=== PATIENT | female | born 1955 | race Caucasian/White ===

== ENCOUNTER 2016-06-13 13:23 | Emergency (ER) | payer OTHER ==
[2016-06-13 13:50] VITALS: BMI 27.4
--- NOTE | 2016-06-13 13:58 | PDOC ---
History of Present Illness - General History Source: Patient Exam Limitations: No Limitations - History of Present Illness Initial Comments: 06/13/16 14:29 The patient is a 60-year-old female, with a significant past medical history of anxiety and depression, who presents to the ED with shortness of breath and difficulty swallowing today. Pt reports that she is was diagnosed with pneumonia earlier this week and was prescribed a 5-day course of levaquin, last dose is tomorrow. She seen in Dr. Florian Larsen office today with complaints of shortness of breath. EKG was done and appeared normal. While in [facility] the patient began to experience difficulty swallowing along with shortness of breath. Pt was worried and called Dr. Cobb and was advised to visit the ER. The patient denies any fever, chills, nausea, vomiting, diarrhea, or abdominal pain. <Shala Esparza - Last Filed: 06/13/16 14:29> <Debbie Magdaleno - Last Filed: 06/14/16 11:03> - General Chief Complaint: Choking Sensation Stated Complaint: TROUBLE SWOLLING Time Seen by Provider: 06/13/16 13:55 Past History <Shala Esparza - Last Filed: 06/13/16 14:29> - Past Medical History Psychiatric Problems: Yes (DEPRESSION/ANXIETY) - Surgical History Abdominal Surgery: Yes (HERNIA) - Psycho/Social/Smoking Cessation Hx Anxiety: Yes Suicidal Ideation: No Smoking History: Never smoked Hx Alcohol Use: No Drug/Substance Use Hx: No Substance Use Type: None <Debbie Magdaleno - Last Filed: 06/14/16 11:03> - Past Medical History Allergies/Adverse Reactions: Allergies Allergy/AdvReac Type Severity Reaction Status Date / Time oxycodone Allergy Hives Verified 06/13/16 13:51 Home Medications: Ambulatory Orders Diazepam [Valium] 10 mg PO TID PRN 06/13/16 Tranylcypromine Sulfate [Parnate] 40 mg PO DAILY 06/13/16 Review of Systems - Review of Systems Able to Perform ROS?: Yes Comments:: 06/13/16 14:29 GENERAL/CONSTITUTIONAL: No fever or chills. No weakness. HEAD, EYES, EARS, NOSE AND THROAT: No change in vision. No ear pain or discharge. No sore throat. (+)difficulty swallowing. CARDIOVASCULAR: No chest pain. (+)shortness of breath RESPIRATORY: No cough, wheezing, or hemoptysis. GASTROINTESTINAL: No nausea, vomiting, diarrhea or constipation. GENITOURINARY: No dysuria, frequency, or change in urination. MUSCULOSKELETAL: No joint or muscle swelling or pain. No neck or back pain. SKIN: No rash NEUROLOGIC: No headache, vertigo, loss of consciousness, or change in strength/ sensation. ENDOCRINE: No increased thirst. No abnormal weight change. HEMATOLOGIC/LYMPHATIC: No anemia, easy bleeding, or history of blood clots. ALLERGIC/IMMUNOLOGIC: No hives or skin allergy. <Shala Esparza - Last Filed: 06/13/16 14:29> *Physical Exam - Vital Signs Last Vital Signs Temp Pulse Resp BP Pulse Ox 98.3 F 83 20 120/42 98 06/13/16 13:45 06/13/16 13:45 06/13/16 13:45 06/13/16 13:45 06/13/16 13:45 - Physical Exam Comments: 06/13/16 14:31 GENERAL: Awake, alert, and fully oriented, in no acute distress. HEAD: No signs of trauma EYES: PERRLA, EOMI, sclera anicteric, conjunctiva clear. ENT: Auricles normal inspection, hearing grossly normal, nares patent, oropharynx clear without exudates. (+)Dry mucous membranes. NECK: Normal ROM, supple, no lymphadenopathy, JVD, or masses LUNGS: Breath sounds equal, clear to auscultation bilaterally. No wheezes, and no crackles HEART: Regular rate and rhythm, normal S1 and S2, no murmurs, rubs or gallops ABDOMEN: Soft, nontender, normoactive bowel sounds. No guarding, no rebound. No masses EXTREMITIES: Normal range of motion, no edema. No clubbing or cyanosis. No cords, erythema, or tenderness NEUROLOGICAL: Cranial nerves II through XII grossly intact. Normal speech, normal gait SKIN: Warm, Dry, normal turgor, no rashes or lesions noted <Shala Esparza - Last Filed: 06/13/16 14:29> - Vital Signs Last Vital Signs Temp Pulse Resp BP Pulse Ox 98.3 F 83 20 120/42 98 06/13/16 13:45 06/13/16 13:45 06/13/16 13:45 06/13/16 13:45 06/13/16 13:45 <Debbie Magdaleno - Last Filed: 06/14/16 11:03> Medical Decision Making - Medical Decision Making Patient was extremely anxious on initial exam. Only positive physical finding was dry mucous membranes. She improved with IV hydration. XR chest and soft tissue neck both negative. D/w Dr. Cobb, knows patient well, will have her follow up. <Debbie Magdaleno - Last Filed: 06/14/16 11:03> *DC/Admit/Observation/Transfer - Attestations Scribe Attestion: 06/13/16 14:33 Documentation prepared by Shala Esparza, acting as medical office worker for Debbie Magdaleno MD. <Shala Esparza - Last Filed: 06/13/16 14:29> - Discharge Dispostion Admit: No <Debbie Magdaleno - Last Filed: 06/14/16 11:03> Diagnosis at time of Disposition: Mild dehydration - Discharge Dispostion Disposition: HOME Condition at time of disposition: Stable - Referrals Referrals: Florian Cobb MD [Primary Care Provider] - - Patient Instructions Printed Discharge Instructions: DI for Dehydration -- Adult
[2016-06-13] MEDS ORDERED: SODIUM CHLORIDE 1,000 ML IV STA (14:09)
[2016-06-13 16:08] VITALS: BP 112/82; PULSE 69; TEMP 97.9
== END 2016-06-13 16:00 | disposition home or self-care (01) ==
LOC: JER 13:23
PROC: 3E0337Z Introduction of Electrolytic and Water Balance Substance into Peripheral Vein, Percutaneous Approach (ICD-10-PCS; principal; 2016-06-13)
DX: Z87.09 Personal history of other diseases of the respiratory system (principal); J18.9 Pneumonia, unspecified organism
CPT/HCPCS: 70360-TC; 71020-TC; 96360; 99282-25

== ENCOUNTER 2016-06-27 10:20 | Emergency (ER) | payer OTHER ==
[2016-06-27 10:43] VITALS: BMI 21.2
--- NOTE | 2016-06-27 10:52 | PDOC ---
[id number] 4d DIZZINESS, LIGHTHEADED (PCP SENT) Time Seen by Provider: 06/27/16 10:45 - History of Present Illness Initial Comments: 06/27/16 11:50 Patient is a 60-year-old female with past medical history of anxiety, depression , pneumonia. She presents to the ER today from her PCP's office complaining of lightheadedness and dizziness. patient states that she is anxious being in the ER and is having a hard time describing her past medical history. Patient states that she had pneumonia one month ago. At that time she was short of breath and having difficulty breathing. She was treated at that time. follow- up CT of her chest showed no residual pneumonia.Now she feels still short of breath and a pounding in her chest. Patient states that these symptoms do not feel like her anxiety symptoms. patient states that she has also been nauseous since last week and hasn't felt like eating. she is concerned there is something wrong. Denies recent travel or prolonged sitting recent hospitalization. Past History - Past Medical History Allergies/Adverse Reactions: Allergies Allergy/AdvReac Type Severity Reaction Status Date / Time amoxicillin Allergy Verified 06/27/16 10:23 oxycodone Allergy Hives Verified 06/27/16 10:23 Home Medications: Ambulatory Orders Diazepam [Valium] 10 mg PO TID PRN 06/13/16 Tranylcypromine Sulfate [Parnate] 40 mg PO DAILY 06/13/16 Budesonide/Formeterol Fumarate [SYMBICORT 160/4.5mcg -] 1 inh PO DAILY 06/27/16 Psychiatric Problems: Yes (DEPRESSION/ANXIETY) - Surgical History Abdominal Surgery: Yes (HERNIA) - Psycho/Social/Smoking Cessation Hx Anxiety: Yes Suicidal Ideation: No (two years ago. under psychiatry now) Smoking History: Never smoked Have you smoked in the past 12 months: No If you are a former smoker, when did you quit?: 2001 Information on smoking cessation initiated: No Hx Alcohol Use: No Drug/Substance Use Hx: No Substance Use Type: None *Physical Exam - Vital Signs Last Vital Signs Temp Pulse Resp BP Pulse Ox 98.1 F 78 18 144/71 97 06/27/16 10:23 06/27/16 10:23 06/27/16 10:23 06/27/16 10:23 06/27/16 10:23 - Physical Exam Comments: 06/27/16 11:56 GENERAL: Well developed, well nourished. Awake and alert. No acute distress. Pt. is anxious, shaking her leg making fair eye contact. HEENT: Normocephalic, atraumatic. PERRLA, EOMI. No conjunctival pallor. Sclera are non- icteric. Dry mucous membranes. Oropharynx is clear. NECK: Supple. Full ROM. No JVD. Carotid pulses 2+ and symmetric, without bruits. No thyromegaly. No lymphadenopathy. CARDIOVASCULAR: Regular rate and rhythm. No murmurs, rubs, or gallops. Distal pulses are 2+ and symmetric. PULMONARY: No evidence of respiratory distress. Lungs clear to auscultation bilaterally. No wheezing, rales or rhonchi. ABDOMINAL: Soft. Non-tender. Non-distended. No rebound or guarding. No organomegaly. Normoactive bowel sounds. MUSCULOSKELETAL Normal range of motion at all joints. No bony deformities or tenderness. No CVA tenderness. EXTREMITIES: No cyanosis. No clubbing. No edema. No calf tenderness. Patellar and achilles DTR 2+ and brisk. SKIN: Warm and dry. Normal capillary refill. No rashes. No jaundice. NEUROLOGICAL: Alert, awake, appropriate. Cranial nerves 2-12 intact. No deficits to light touch and temperature in face, upper extremities and lower extremities. No motor deficits in the in face, upper extremities and lower extremities. Normoreflexic in the upper and lower extremities. Normal speech. Toes are down- going bilaterally. Gait is normal without ataxia. PSYCHIATRIC: Cooperative. Appropriate mood ED Treatment Course - LABORATORY CBC & Chemistry Diagram: 06/27/16 11:38 06/27/16 11:38 Medical Decision Making - Medical Decision Making 06/27/16 11:57 patient is [id number] female presenting with dizziness and weakness.Given the vague symptoms and multiple complaints we'll order a full workup. Cardiac monitoring to see if there is an arrhythmia. We'll also draw basic labs to look for anemia or residual infection. TSH for hyperthyroid. Suspision for Guillaun barre is low given strong lower extremity reflexes. If all labs come back negative, will consider treating for an anxiety treatment. 1. CBC, CMP, UA for infection, anemia, hydration status 2. Cardiac panel, ekg and cardiac labs, TSH 3. Fluids for hydration 4. Will re-evaluate 06/27/16 12:42 Pt. is still complaining of being light headed. CBC within normal limits. TSH is not elevated at this time. BUN is 8/Creatinine is 0.6. Glucose is slightly low at 70. Pt is tolerating PO and will give orange juice at this time. Chest X-ray shows no acute pathology EKG shows sinus rhythm with a rate of 62. No acute ischemic changes noted. Put a page out to Dr. Cobb for more information on this patient. 06/27/16 13:[address] Cobb and discussed the case. Given that the work up is negative , discussed giving a dose of valium in the ED. Will do that now and see how the pt. feels. 06/27/16 14:18 Pt. states that she feels better after the valium and that the dizziness has gone away. She realizes that her anxiety may have been playing a part in her symptoms. Agreeable to take her home prescription of Valium at least twice a day. Will keep cardiology appointment she has scheduled through Dr. Cobb. *DC/Admit/Observation/Transfer Diagnosis at time of Disposition: Anxiety - Discharge Dispostion Disposition: HOME Admit: No - Referrals Referrals: Florian Cobb MD [Primary Care Provider] - - Patient Instructions Printed Discharge Instructions: DI for Anxiety -- Adult Additional Instructions: Your work up was all normal today. Your blood work showed no infection. Your EKG was normal. Your Cardiac work up was normal. Your chest x-ray showed no evidence of pneumonia. Continue to take your Valium as discussed. You are prescribed to take it 4 times a day. Take your medication even if you are feeling well. If you have more concerning or worsening symptoms, return to the ED.
[2016-06-27] MEDS ORDERED: SODIUM CHLORIDE 1,000 ML IV STA (11:16)
[2016-06-27 11:56] LABS: BASOPHIL 0.8 % (0-2.0); EOSINOPHIL 0.9 % (0-4.5); MCH 25.3 pg (25.7-33.7); MCHC 32.5 g/dl (32.0-36.0); MEAN PLT VOLUME 9.3 fl (7.5-11.1); NEUTROPHILS 71.5 % (42.8-82.8); PLATELET COUNT 255 K/MM3 (134-434); RDW 14.7 % (11.6-15.6); WHITE BLOOD COUNT 8.6 K/mm3 (4.0-10.0)
[2016-06-27 12:05] LABS: URINE APPEARANCE SLCLOUDY; URINE BILIRUBIN NEGATIVE (NEGATIVE); URINE COLOR YELLOW; URINE GLUCOSE (UA) NEGATIVE (NEGATIVE); URINE KETONE NEGATIVE (NEGATIVE); URINE LEUK ESTERASE NEGATIVE (NEGATIVE); URINE NITRITE NEGATIVE (NEGATIVE); URINE PROTEIN NEGATIVE (NEGATIVE); URINE UROBILINOGEN NEGATIVE E.U./dl (0.2-1.0)
[2016-06-27 12:06] LABS: URINE BLOOD 1+ (NEGATIVE)
[2016-06-27 12:21] LABS: ANION GAP 7 (8-16); BILIRUBIN,TOTAL 0.4 mg/dL (0.2-1.0); CO2 30 mmol/L (21-32); CREATININE 0.7 mg/dL (0.55-1.02); GLUCOSE,RANDOM 71 mg/dL (74-106); SGOT/AST 23 U/L (15-37); SGPT/ALT 18 U/L (12-78); TOT PROT 7.1 g/dl (6.4-8.2)
[2016-06-27 12:24] LABS: ALK PHOS 64 U/L (45-117); TROPONIN I < 0.02 ng/ml (0.00-0.05)
[2016-06-27 12:28] LABS: URINE BACTERIA RARE /hpf (NONE SEEN); URINE MUCUS MODERATE; URINE RBC 1 /hpf (0-3); URINE WBC 2 /hpf (3-5)
--- NOTE | 2016-06-27 13:10 | EKG ---
Test Reason : Blood Pressure : / mmHG Vent. Rate : 062 BPM Atrial Rate : 062 BPM P-R Int : 126 ms QRS Dur : 086 ms QT Int : 402 ms P-R-T Axes : 070 056 066 degrees QTc Int : 408 ms NORMAL SINUS RHYTHM NORMAL ECG NO PREVIOUS ECGS AVAILABLE Confirmed by ANGELA REMY MD ([id number]) on 06/27/2016 1:10:35 PM Referred By: Confirmed By:ANGELA REMY MD
[2016-06-27] MEDS ORDERED: diazePAM CARPU-JECT 10 MG/2 ML DISP.SYRIN IVPUSH ONE (13:12)
[2016-06-27 13:17] VITALS: TEMP 98.6
[2016-06-27] MEDS ORDERED: diazePAM CARPU-JECT 10 MG/2 ML DISP.SYRIN ONE (13:20)
--- NOTE | 2016-06-27 14:25 | PDOC ---
*Physical Exam - Vital Signs Last Vital Signs Temp Pulse Resp BP Pulse Ox 98.6 F 75 20 113/73 98 06/27/16 13:17 06/27/16 13:17 06/27/16 13:17 06/27/16 13:17 06/27/16 13:17 - Physical Exam Comments: 06/27/16 14:24 The patient was examined by [FELIX Deleon] under my direct supervision. I personally evaluated the patient. I concur with the above findings and the plan of care. ED Treatment Course - LABORATORY CBC & Chemistry Diagram: 06/27/16 11:38 06/27/16 11:38 - ADDITIONAL ORDERS Additional order review: Laboratory Results 06/27/16 06/27/16 06/27/16 13:13 11:38 11:38 Sodium Potassium Chloride Carbon Dioxide Anion Gap BUN Creatinine Creat Clearance w eGFR POC Glucometer 127.03374 Random Glucose Calcium Total Bilirubin AST ALT Alkaline Phosphatase Creatine Kinase Troponin I Total Protein Albumin TSH 0.58 Urine Color Yellow Urine Appearance Slcloudy Urine pH 5.0 Ur Specific [place] 1.021 Urine Protein Negative Urine Glucose (UA) Negative Urine Ketones Negative Urine Blood 1+ H Urine Nitrite Negative Urine Bilirubin Negative Urine Urobilinogen Negative Ur Leukocyte Esterase Negative Urine RBC 1 Urine WBC 2 Ur Epithelial Cells Rare Urine Bacteria Rare Urine Mucus Moderate 06/27/16 11:38 Sodium 139 Potassium 4.1 Chloride 102 Carbon Dioxide 30 Anion Gap 7 L BUN 8 Creatinine 0.7 Creat Clearance w eGFR > 60 POC Glucometer Random Glucose 71 L Calcium 9.0 Total Bilirubin 0.4 AST 23 ALT 18 Alkaline Phosphatase 64 Creatine Kinase 67 Troponin I < 0.02 Total Protein 7.1 Albumin 4.0 TSH Urine Color Urine Appearance Urine pH Ur Specific [place] Urine Protein Urine Glucose (UA) Urine Ketones Urine Blood Urine Nitrite Urine Bilirubin Urine Urobilinogen Ur Leukocyte Esterase Urine RBC Urine WBC Ur Epithelial Cells Urine Bacteria Urine Mucus 06/27/16 06/27/16 13:13 11:38 RBC 4.57 MCV 78.0 L MCHC 32.5 RDW 14.7 MPV 9.3 Neutrophils % 71.5 Lymphocytes % 18.4 Monocytes % 8.4 Eosinophils % 0.9 Basophils % 0.8 POC Glucometer 127.97365 - Medications Given in the ED: ED Medications Discontinued Medications Generic Name Dose Route Start Last Admin Trade Name Freq PRN Reason Stop Dose Admin Diazepam 5 mg 06/27/16 13:12 06/27/16 13:29 Valium Injection - IVPUSH 06/27/16 13:13 5 mg ONCE ONE Administration Sodium Chloride 1,000 mls @ 1,000 mls/hr 06/27/16 11:16 06/27/16 11:38 Normal Saline - IV 06/27/16 12:15 1,000 mls/hr ASDIR STA Administration *DC/Admit/Observation/Transfer Diagnosis at time of Disposition: Anxiety - Referrals Referrals: Florian Cobb MD [Primary Care Provider] - - Patient Instructions Printed Discharge Instructions: DI for Anxiety -- Adult Additional Instructions: Your work up was all normal today. Your blood work showed no infection. Your EKG was normal. Your Cardiac work up was normal. Your chest x-ray showed no evidence of pneumonia. Continue to take your Valium as discussed. You are prescribed to take it 4 times a day. Take your medication even if you are feeling well. If you have more concerning or worsening symptoms, return to the ED. - Post Discharge Activity
[2016-06-27 15:07] VITALS: BP 118/68; PULSE 78
== END 2016-06-27 15:08 | disposition home or self-care (01) ==
LOC: JER 10:20
PROC: 3E0337Z Introduction of Electrolytic and Water Balance Substance into Peripheral Vein, Percutaneous Approach (ICD-10-PCS; principal; 2016-06-27)
PROC: 3E033NZ Introduction of Analgesics, Hypnotics, Sedatives into Peripheral Vein, Percutaneous Approach (ICD-10-PCS; 2016-06-27)
DX: F41.9 Anxiety disorder, unspecified (principal)
CPT/HCPCS: 36415; 71020-TC; 80053; 81003; 81015; 82550; 84443; 84484; 85025; 93005; 93010; 96361; 96374; 99284-25

== ENCOUNTER 2021-05-28 19:26 | Emergency (ER) | payer OTHER ==
[2021-05-28 19:59] VITALS: BP 111/78; PULSE 75; TEMP 97.3; BMI 21.0
[2021-05-28] MEDS ORDERED: SODIUM CHLORIDE 0.9% 500 ML INFUS.BAG IV ONE (21:35)
[2021-05-28] MEDS ORDERED: ONDANSETRON 4 MG/2 ML VIAL IVPUSH ONE (21:35)
[2021-05-28] MEDS ORDERED: ONDANSETRON 4 MG/2 ML VIAL ONE (21:55)
[2021-05-28 22:16] LABS: HEMATOCRIT 34.8 % (32.4-45.2); HEMOGLOBIN 11.9 GM/dL (10.7-15.3); MCH 27.7 pg (25.7-33.7); MCHC 34.3 g/dl (32.0-36.0); MEAN CELL VOLUME 80.8 fl (80-96); MEAN PLT VOLUME 9.8 fl (7.5-11.1); PLATELET COUNT 201 10^3/uL (134-434); RDW 13.6 % (11.6-15.6); WHITE BLOOD COUNT 6.4 K/mm3 (4.0-10.0)
[2021-05-28 22:55] LABS: EPI CELLS 27 /uL (0-25.1); HYALINE CASTS 20 /uL (0-3.1); PH,URINE 5.5 (5.0-8.0); URINE APPEARANCE CLOUDY; URINE BACTERIA >9,000 /uL (0-1359); URINE BILIRUBIN NEGATIVE (NEGATIVE); URINE COLOR YELLOW; URINE GLUCOSE (UA) NEGATIVE (NEGATIVE); URINE KETONE 1+ (NEGATIVE); URINE LEUK ESTERASE 1+ (NEGATIVE); URINE NITRITE NEGATIVE (NEGATIVE); URINE PROTEIN NEGATIVE (NEGATIVE); URINE RBC 11 /uL (0-23.9); URINE UROBILINOGEN 0.2 mg/dL (0.2-1.0); URINE WBC 68 /uL (0-25.8)
[2021-05-28 23:29] LABS: SODIUM 140 mmol/L (136-145)
[2021-05-28 23:31] LABS: CALCIUM 9.3 mg/dL (8.5-10.1); CO2 25 mmol/L (21-32)
[2021-05-28 23:32] LABS: BLOOD UREA NITROGEN 14.9 mg/dL (7-18); GLUCOSE,RANDOM 95 mg/dL (74-106)
[2021-05-28 23:34] LABS: SGPT/ALT 22 U/L (13-61)
[2021-05-28 23:35] LABS: CREATININE 0.7 mg/dL (0.55-1.3); SGOT/AST 20 U/L (15-37)
[2021-05-28 23:36] LABS: BILIRUBIN,TOTAL 0.5 mg/dL (0.2-1); TOT PROT 6.9 g/dl (6.4-8.2)
[2021-05-28 23:37] LABS: ALK PHOS 67 U/L (45-117)
[2021-05-28 23:51] LABS: ANION GAP 9 MMOL/L (8-16); CHLORIDE 107 mmol/L (98-107)
[2021-05-30 06:07] LABS: SARS-CoV-2 NAA Not Detected (Not Detected)
== END 2021-05-28 23:25 | disposition home or self-care (01) ==
LOC: JERFT 19:26
PROC: 3E033GC Introduction of Other Therapeutic Substance into Peripheral Vein, Percutaneous Approach (ICD-10-PCS; principal; 2021-05-28)
DX: N39.0 Urinary tract infection, site not specified (principal)
CPT/HCPCS: 36415; 80053; 81003; 82550; 84484; 85027; 87086; 87186; 93005; 93010; 99284-25; C9803; U0003; U0005